=== PATIENT | male | born 1980 | race Caucasian/White ===

== ENCOUNTER 2016-04-12 17:54 | Emergency (ER) | payer OTHER ==
[~2016-04-12] VITALS: Wt 103.1 kg
[~2016-04-12 17:54] MED LIST: IBUP-1542 PO
--- NOTE | 2016-04-12 18:17 | ERA ---
ER Documentation Chief Complaint Date/Time DATE: 04/12/16 TIME: 18:17 Chief Complaint COUGH FEVER AND SORE THROAT FOR THE PAST 3 DAYS. NO STRIDOR OR SOB HPI The patient is a 35-year-old male, presenting to the ER because of cough, fever , sore throat, general body pain for 3 days. He denies facial pain, neck pain, chest pain, dyspnea, abdominal pain, dysuria, diarrhea. He smokes a pack a day , drinks socially Past medical history: None Past surgical history: Umbilical herniorrhaphy ROS All systems reviewed and are negative except as per history of present illness. Medications Home Meds Active Scripts Amoxicillin/Potassium Clav (Amox-Clav 875-125 mg Tablet) 875-125 mg Tab, 1 TAB PO BID for 10 Days, #20 TAB Prov:FRANCISCO JAVIER SWEENEY MD 04/12/16 Amoxicillin/Potassium Clav (Amox-Clav 875-125 mg Tablet) 875-125 mg Tab, 1 TAB PO BID for 10 Days, #20 TAB Prov:FRANCISCO JAVIER SWEENEY MD 04/12/16 Ibuprofen* (Motrin*) 800 Mg Tab, 800 MG PO Q6H Y for PAIN AND OR ELEVATED TEMP, #30 TAB Prov:FRANCISCO JAVIER SWEENEY MD 04/12/16 Promethazine HCl/Codeine (Prometh-Codein 6.25-10 mg/5 ml) 5 Ml Syrup, 10 ML PO Q6 for COUGH, #120 ML Prov:FRANCISCO JAVIER SWEENEY MD 04/12/16 Oseltamivir Phosphate* (Tamiflu*) 75 Mg Capsule, 75 MG PO BID for 5 Days, CAP Prov:FRANCISCO JAVIER SWEENEY MD 04/12/16 Amoxicillin/Potassium Clav (Amox-Clav 875-125 mg Tablet) 875-125 mg Tab, 1 TAB PO BID for 10 Days, #20 TAB Prov:FRANCISCO JAVIER SWEENEY MD 04/12/16 Ibuprofen* (Motrin*) 600 Mg Tab, 600 MG PO Q6H Y for PAIN AND OR ELEVATED TEMP, #30 TAB Prov:LAVERNE JASON NP 12/29/15 Allergies Allergies: Coded Allergies: No Known Allergy (Unverified , 02/02/13) PMhx/Soc Hx Cardiac Disorders: Yes (htn) Hx Alcohol Use: Yes Hx Substance Use: No Hx Tobacco Use: Yes Physical Exam Vitals Vital Signs Date Time Temp Pulse Resp B/P Pulse Ox O2 Delivery O2 Flow Rate FiO2 04/12/16 19:25 100.8 101 19 136/87 97 Room Air 04/12/16 17:57 101.0 115 22 140/78 98 Physical Exam Const: No acute distress. Head: Atraumatic. Eyes: Normal Conjunctiva. ENT: Normal External Ears, Nose and Mouth. Bilateral tympanic membrane within normal limits, oropharynx is erythematous with exudate Neck: Full range of motion. No meningismus. Resp: Clear to auscultation bilaterally. Cardio: Regular rate and rhythm, no murmurs. Abd: Soft, non distended, normal bowel sounds, non tender. Skin: No petechiae or rashes. Back: No midline or flank tenderness. Ext: No cyanosis, or edema. Neur: Awake and alert. No focal deficit Psych: Normal Mood and Affect. Results 24 hrs Current Medications Medications (Trade) Dose Ordered Sig/Sea Route PRN Reason Start Time Stop Time Status Last Admin Dose Admin Ibuprofen (Motrin) 800 mg ONCE ONCE PO 04/12/16 18:30 04/12/16 18:31 DC Acetaminophen (Tylenol Tab) 1,000 mg ONCE STAT PO 04/12/16 18:22 04/12/16 18:23 DC Procedures/[place] [id number] Radiology Main Line: [phone] DIAGNOSTIC IMAGING REPORT Patient: JARVIS BURR : 1980 Age: 35 Sex: M MR #: [id number] DOS: 04/12/16 1822 Ordering MD: FRANCISCOJ AVIER SWEENEY MD Location: E/R Room/Bed: PROCEDURE: Chest x-ray CLINICAL INDICATION: Shortness of breath TECHNIQUE: Chest single view COMPARISON: 02/02/2013 FINDINGS: The heart is normal in size. The pulmonary vessels are normal in caliber. There is stable left lower lung scarring. Lungs otherwise clear.. The costophrenic angles are sharp. The visualized bony thorax is unremarkable. IMPRESSION: No acute cardiopulmonary disease. No interval change RPTAT: .Blake Crowell MD, MD Date Time Electronically viewed and signed by .Blake Crowell MD, on 04/12/2016 18:44 .W/ CC: FRANCISCO JAVIER SWEENEY MD MEDICAL MAKING DECISION: The patient is a 35-year-old male, presenting with acute pharyngitis, influenza-like illness. He was treated with acetaminophen and Motrin for fever with good response. The differential diagnoses considered include but are not limited to asthma, COPD, pneumonia, pulmonary embolus, pleural effusion, congestive heart failure. Departure Diagnosis: Primary Impression: Acute pharyngitis Additional Impression: Influenza-like illness Condition: Good Comments He was discharged with Phenergan with codeine, Augmentin, Tamiflu, Motrin I discussed the findings with the patient. I advised the patient to follow-up with the primary physician in about 1-2 days, sooner if needed and return if any concern. The patient's blood pressure was elevated (>120/80) but appears stable without evidence of hypertension emergency or urgency. The patient was counseled about the risks of hypertension and urged to pursue outpatient monitoring and therapy within a week with their primary care physician. FRANCISCO JAVIER SWEENEY MD Apr 12, 2016 18:17
[2016-04-12] MEDS ORDERED: ACETAMINOPHEN 500 MG TAB PO STA (18:22)
[2016-04-12] MEDS ORDERED: IBUPROFEN 800 MG TAB PO ONE (18:30)
--- NOTE | 2016-04-12 18:45 | RADRPT ---
PROCEDURE: Chest x-ray CLINICAL INDICATION: Shortness of breath TECHNIQUE: Chest single view COMPARISON: 02/02/2013 FINDINGS: The heart is normal in size. The pulmonary vessels are normal in caliber. There is stable left low er lung scarring. Lungs otherwise clear.. The costophrenic angles are sharp. The visualized bony thorax is unremarkable. IMPRESSION: No acute cardiopulmonary disease. No interval change RPTAT: HH .Blake Crowell MD, MD Date Time Electronically viewed and signed by .Blake Crowell MD, on 04/12/2016 18:44 .W/
[2016-04-12] MEDS ORDERED: AMOX1TAB10 PO ×3 (18:55→19:17)
[2016-04-12] MEDS ORDERED: OSLT75C PO (18:55)
[2016-04-12] MEDS ORDERED: PROM5SYR2 PO (18:58)
[2016-04-12] MEDS ORDERED: IBUP800T25 PO (18:58)
[2016-04-12 19:25] VITALS: BP 136/87; PULSE 101; RESP 19; TEMP 100.8
== END 2016-04-12 19:28 | disposition home or self-care (01) ==
LOC: E/R 17:54
DX: J02.9 Acute pharyngitis, unspecified (principal); R50.9 Fever, unspecified; F17.210 Nicotine dependence, cigarettes, uncomplicated; I10 Essential (primary) hypertension
CPT/HCPCS: 71010; Z7502; Z7610

== ENCOUNTER 2018-02-26 17:09 | Emergency (ER) | payer OTHER ==
[~2018-02-26] VITALS: Ht 175.3 cm; Wt 101.7 kg
[~2018-02-26 17:09] MED LIST changes: +AMOX1TAB10 PO; +IBUP800T48 PO; +OSLT75C PO; +PROM5SYR2 PO
[2018-02-26 17:13] VITALS: Ht 175.3 cm; Wt 101.7 kg
[2018-02-26] MEDS ORDERED: CEFTRIAXONE 1 GM/50 ML (PMX) 50 ML IVPB ONE (18:30)
[2018-02-26] MEDS ORDERED: SOD CHLORIDE 0.9% 1,000 ML IV ONE (18:30)
[2018-02-26] MEDS ORDERED: ONDANSETRON 4 MG INJ IV STA (18:50)
[2018-02-26] MEDS ORDERED: morphine 4 MG/ML VIAL IV STA (18:50)
[2018-02-26] MEDS ORDERED: CLINDAMYCIN 900 MG/D5W (PMX) 50 ML IVPB SCH (19:00)
[2018-02-26] MEDS ORDERED: LIDOCAINE 1% (MDV) 20 ML INJ SC ONE (19:00)
[2018-02-26] MEDS ORDERED: BENZOCAINE 20% 56 ML SPRAY TOP PRN (19:00)
[2018-02-26] MEDS ORDERED: DEXAMETHASONE 10 MG/ML 1 ML INJ IV ONE (19:00)
[2018-02-26] MEDS ORDERED: AMOX1TAB10 PO ×2 (20:31→20:32)
[2018-02-26] MEDS ORDERED: MED4DP PO (20:33)
[2018-02-26] MEDS ORDERED: IBUP-1542 PO (20:33)
[2018-02-26 20:35] VITALS: BP 127/72; PULSE 101; RESP 18
--- NOTE | 2018-02-26 21:17 | ERD ---
ER Documentation Chief Complaint Chief Complaint Complains of a sore throat x 2 days HPI 37-year-old male presents for sore throat times 2 days. He states that he has 10 out of 10 pain. Denies any fevers. He states he also has bilateral ear pain. He is having difficulty swallowing. Denies cough or runny nose. No prior similar symptoms. Denies chest pain or shortness of breath. Denies abdominal pain, nausea, vomiting. ROS All systems reviewed and are negative except as per history of present illness. Medications Home Meds Active Scripts Ibuprofen* (Motrin*) 600 Mg Tab, 600 MG PO Q6H PRN for PAIN AND OR ELEVATED TEMP, #30 TAB Prov:FRANCISCO JAVIER GURROLA DO 02/26/18 Methylprednisolone* (Medrol* DOSE PACK) 4 Mg/Dose-Pack Tab.ds.pk, 4 MG PO . DIRECTED for peritonsillar abscess, #1 PACKET Prov:FRANCISCO JAVIER GURROLA DO 02/26/18 Amoxicillin/Potassium Clav (Amox-Clav 875-125 mg Tablet) 875-125 mg Tab, 1 TAB PO BID for 14 Days, #20 TAB Prov:FRANCISCO JAVIER GURROLA DO 02/26/18 Amoxicillin/Potassium Clav (Amox-Clav 875-125 mg Tablet) 875-125 mg Tab, 1 TAB PO BID for 10 Days, #20 TAB Prov:FRANCISCO JAVIER SWEENEY MD 04/12/16 Amoxicillin/Potassium Clav (Amox-Clav 875-125 mg Tablet) 875-125 mg Tab, 1 TAB PO BID for 10 Days, #20 TAB Prov:FRANCISCO JAVIER SWEENEY MD 04/12/16 Ibuprofen* (Motrin*) 800 Mg Tab, 800 MG PO Q6H PRN for PAIN AND OR ELEVATED TEMP, #30 TAB Prov:FRANCISCO JAVIER SWEENEY MD 04/12/16 Promethazine HCl/Codeine (Prometh-Codein 6.25-10 mg/5 ml) 5 Ml Syrup, 10 ML PO Q6 for COUGH, #120 ML Prov:FRANCISCO JAVIER SWEENEY MD 04/12/16 Oseltamivir Phosphate* (Tamiflu*) 75 Mg Capsule, 75 MG PO BID for 5 Days, CAP Prov:FRANCISCO JAVIER SWEENEY MD 04/12/16 Amoxicillin/Potassium Clav (Amox-Clav 875-125 mg Tablet) 875-125 mg Tab, 1 TAB PO BID for 10 Days, #20 TAB Prov:FRANCISCO JAVIER SWEENEY MD 04/12/16 Ibuprofen* (Motrin*) 600 Mg Tab, 600 MG PO Q6H PRN for PAIN AND OR ELEVATED TEMP, #30 TAB Prov:LAVERNE JASON NP 12/29/15 Allergies Allergies: Coded Allergies: No Known Allergy (Unverified , 02/02/13) PMhx/Soc Hx Cardiac Disorders: Yes (htn) Hx Alcohol Use: Yes Hx Substance Use: No Hx Tobacco Use: Yes Smoking Status: Unknown if ever smoked Physical Exam Vitals Vital Signs Date Temp Pulse Resp B/P (MAP) Pulse Ox O2 O2 Flow FiO2 Time Delivery Rate 02/26/18 99.1 101 18 127/72 92 Room Air 20:35 (90) 02/26/18 98.5 111 20 133/83 96 17:13 (100) Physical Exam Const: No acute distress, patient did have mildly muffled voice Head: Atraumatic Eyes: Normal Conjunctiva ENT: Normal External Ears, bilateral tympanic memory intact without erythema or bulging noted, Nose. Oral examination shows left peritonsillar swelling with some erythema and underlying fluctuance on palpation. Airway is patent. Neck: Full range of motion. No meningismus. Resp: Clear to auscultation bilaterally, no wheezing, patient speaking in full sentences, no use of accessory muscles Cardio: Regular rate and rhythm, no murmurs Skin: No petechiae or rashes Ext: No cyanosis, or edema Neur: Awake and alert Psych: Normal Mood and Affect Result Diagram: 02/26/18 1845 02/26/18 1845 Results 24 hrs Laboratory Tests Test 02/26/18 18:45 White Blood Count 16.1 10^3/ul Red Blood Count 4.99 10^6/ul Hemoglobin 15.0 g/dl Hematocrit 44.3 % Mean Corpuscular Volume 88.8 fl Mean Corpuscular Hemoglobin 30.1 pg Mean Corpuscular Hemoglobin Concent 33.9 g/dl Red Cell Distribution Width 13.3 % Platelet Count 199 10^3/UL Mean Platelet Volume 8.5 fl Immature Granulocytes % 0.600 % Neutrophils % 76.0 % Lymphocytes % 16.6 % Monocytes % 5.8 % Eosinophils % 0.6 % Basophils % 0.4 % Nucleated Red Blood Cells % 0.0 /100WBC Immature Granulocytes # 0.090 10^3/ul Neutrophils # 12.3 10^3/ul Lymphocytes # 2.7 10^3/ul Monocytes # 0.9 10^3/ul Eosinophils # 0.1 10^3/ul Basophils # 0.1 10^3/ul Nucleated Red Blood Cells # 0.0 10^3/ul Sodium Level 140 mmol/L Potassium Level 4.0 mmol/L Chloride Level 101 mmol/L Carbon Dioxide Level 26 mmol/L Anion Gap 13 Blood Urea Nitrogen 13 mg/dl Creatinine 0.55 mg/dl Est Glomerular Filtrat Rate mL/min > 60 mL/min Glucose Level 129 mg/dl Calcium Level 10.0 mg/dl Total Bilirubin 0.3 mg/dl Direct Bilirubin 0.00 mg/dl Indirect Bilirubin 0.3 mg/dl Aspartate Amino Transf (AST/SGOT) 22 IU/L Alanine Aminotransferase (ALT/SGPT) 16 IU/L Alkaline Phosphatase 90 IU/L Total Protein 8.8 g/dl Albumin 4.8 g/dl Globulin 4.00 g/dl Albumin/Globulin Ratio 1.20 Current Medications Medications Dose Sig/Sea Start Time Status Last (Trade) Ordered Route PRN Stop Time Admin Dose Reason Admin Sodium 1,000 ml @ Q1H ONCE 02/26/18 DC 02/26/18 Chloride 1,000 mls/hr IV 18:30 02/26/18 19:06 19:29 Ceftriaxone 50 ml @ ONCE ONCE 02/26/18 DC Sodium 100 mls/hr IVPB 18:30 02/26/18 18:51 Clindamycin 50 ml @ 50 ONCE IVPB 02/26/18 DC 02/26/18 HCl/ mls/hr 19:00 02/26/18 19:06 Dextrose 19:59 10 mg ONCE ONCE 02/26/18 DC 02/26/18 Dexamethasone IV 19:00 02/26/18 19:05 (Decadron) 19:01 Lidocaine 20 ml ONCE ONCE 02/26/18 DC (Xylocaine SC 19:00 02/26/18 1% (Mdv) 20 19:01 ml) Benzocaine 1 spray PRN PRN 02/26/18 DC (Dermoplast TOP PAIN 19:00 02/26/18 [place]) 21:03 Morphine 4 mg ONCE STAT 02/26/18 DC 02/26/18 Sulfate IV 18:50 02/26/18 19:06 (morphine) 18:55 Ondansetron 4 mg ONCE STAT 02/26/18 DC 02/26/18 HCl (Zofran IV 18:50 02/26/18 19:05 Inj) 18:55 Procedures/MDM Medical Decision Making: Differential diagnosis includes but not limited to strep throat, peritonsillar abscess, tonsillitis. Patient appeared well on examination. There was severe left peritonsillar swelling with underlying fluctuance to palpation consistent with a peritonsillar abscess. CBC showed an elevated WBC of 16, no anemia noted. CMP showed normal electrolytes, normal renal and liver function. Patient given IV fluids, IV pain medication, Zofran, Decadron, IV antibiotics clindamycin. On-call ENT Dr. Terrazas was consulted and performed a bedside incision and drainage. Elevated WBC is a reflection of the patient's peritonsillar abscess. Patient appeared well and it was felt that he was stable for outpatient management. Patient given prescription for Medrol Dosepak, Augmentin for 14 days, pain medication. Patient advised to follow-up with ENT outpatient if swelling does not improve. Patient advised to follow up with PCP in 1-2 days. Patient advised to return to ED for new or worsening symptoms. Patient stable on discharge from the ED. Disclaimer: Inadvertent spelling and grammatical errors are likely due to EHR/dictation software use and do not reflect on the overall quality of patient care. Also, please note that the electronic time recorded on this note does not necessarily reflect the actual time of the patient encounter. Departure Diagnosis: Primary Impression: Peritonsillar abscess Condition: Fair Patient Instructions: Peritonsillar Abscess Referrals: [facility] YOU HAVE RECEIVED A MEDICAL SCREENING EXAM AND THE RESULTS INDICATE THAT YOU DO NOT HAVE A CONDITION THAT REQUIRES URGENT TREATMENT IN THE EMERGENCY DEPARTMENT. FURTHER EVALUATION AND TREATMENT OF YOUR CONDITION CAN WAIT UNTIL YOU ARE SEEN IN YOUR DOCTORS OFFICE WITHIN THE NEXT 1-2 DAYS. IT IS YOUR RESPONSIBILITY TO MAKE AN APPOINTMENT FOR FOLOW-UP CARE. IF YOU HAVE A PRIMARY DOCTOR --you should call your primary doctor and schedule an appointment IF YOU DO NOT HAVE A PRIMARY DOCTOR YOU CAN CALL OUR PHYSICIAN REFERRAL HOTLINE AT IF YOU CAN NOT AFFORD TO SEE A PHYSICIAN YOU CAN CHOSE FROM THE FOLLOWING [facility] [id number] [facility] [address] [facility] [facility] [address] [facility] [facility] [address] [facility]. [facility] [address] [facility]. [facility] [address] Additional Instructions: Call your primary care doctor TOMORROW for an appointment during the next 1-2 days.See the doctor sooner or return here if your condition worsens before your appointment time. Follow up with ENT outpatient. FRANCISCO JAVIER GURROLA DO Feb 26, 2018 21:17
--- NOTE | 2018-02-27 00:05 | CONS ---
DATE OF ADMISSION: 02/26/2018 DATE OF CONSULTATION: 02/26/2018 REASON FOR CONSULTATION: Left peritonsillar abscess. CHIEF COMPLAINT: Throat pain. HISTORY OF PRESENT ILLNESS: This is a 37-year-old gentleman with history of hypertension who developed sudden onset of sore throat yesterday. Sore throat has progressively worsened and includes left neck pain, left otalgia, dysphagia, odynophagia, and slightly muffled voice. The patient has been unable to take p.o. over the past day. The patient does have a prior episode of acute pharyngitis requiring antibiotics but has not had a peritonsillar abscess in the past. Due to the size of the infection, ENT consultation was requested by the emergency room physician. PAST MEDICAL HISTORY: Hypertension. PAST SURGICAL HISTORY: None. FAMILY HISTORY: No history of head and neck carcinoma. SOCIAL HISTORY: Smoking, yes. Alcohol, yes. ALLERGIES: NO KNOWN ALLERGIES. MEDICATIONS: None. REVIEW OF SYSTEMS: A 10-point review of systems was negative except as noted in the HPI. PHYSICAL EXAMINATION: The patient underwent a physical examination as described below. The pertinent positive and negative findings are summarized after the description of the examination. Constitutional: The patient's developmental and nutritional status were assessed. The patient's voice quality was assessed. Head and Face: The head and face were inspected for deformities. The salivary glands were palpated. Facial strength was assessed bilaterally. Eyes: Extraocular movements and primary gaze alignment were assessed. Ears, Nose, Mouth & Throat: The external auditory canals and pinnae were examined. The nasal septum, mucosa, and turbinates were inspected by anterior rhinoscopy. The lips, teeth, and gums were examined for abnormalities. The oral mucosa, tongue, palate, tonsils, lateral and posterior pharynx were inspected for the presence of asymmetry or mucosal lesions. Neck: The tracheal position was noted, and the neck was palpated to determine if there were any asymmetries, abnormal neck masses, or thyromegaly. Respiratory: The nature of the breathing and chest expansion/symmetry was observed. Cardiovascular: The patient was examined to determine the presence of any edema or jugular venous distension. Abdomen: The contour of the abdomen was noted. Lymphatic: The patient was examined for supraclavicular lymphadenopathy. Musculoskeletal: The patient was inspected for the presence of skeletal deformities. Extremities: The extremities were examined for any clubbing or cyanosis. Skin: The skin was examined for inflammatory or neoplastic conditions. Neurologic: The patient's orientation, mood, and affect were noted. The cranial nerve functions were examined (II-VII, IX-XII) Pertinent positive and negative findings on physical examination: EARS: AU pinnae within normal limits. No otorrhea. External auditory canals clear, tympanic membranes intact. NOSE: Grossly normal external appearance. Normal mucosa, no epistaxis or rhinorrhea. ORAL CAVITY AND OROPHARYNX: There is very slight trismus. Dentition is fair. There is moderate amount of thick dry secretions. There is significant left palate bulge with severe uvular edema. The tonsillar fossae are poorly visualized secondary to the uvular edema. NECK: Tender on the left more than the right. The trachea is midline and the neck is supple. PROCEDURE: I had a thorough discussion with the patient regarding the risks, benefits, rationale, and alternatives to incision and drainage of the peritonsillar abscess. The patient understood the risks included but were not limited to failure to alleviate symptoms, infection, bleeding, scar, numbness, dysphagia, dyspnea, need for further treatment. The patient did elect to proceed. PROCEDURAL DETAILS: The patient was carefully positioned in an upright seated position. Oral cavity was suctioned free of secretions. 1% lidocaine was injected in a submucosal manner into the area of the planned incision. An 11 blade scalpel was used to make the 1 cm incision in the left soft palate overlying the most prominent aspect of the bulge. Curved dissectors were utilized to enter into the abscess pocket and a small amount of purulent material was drained. There was a small degree of bloody secretions that emanated from this area as well. Culture swab was taken of the area. The patient felt improvement in symptoms at this time. With this, the procedure was concluded. ESTIMATED BLOOD LOSS: Minimal. COMPLICATIONS: None. ASSESSMENT AND PLAN: This is a 37-year-old gentleman who is presenting with a left peritonsillar abscess and significant uvular edema. He has been improving after receiving clindamycin, Decadron, morphine, Zofran and ceftriaxone in the ER and he is now status post incision and drainage of left peritonsillar abscess. Due to the significant edema, I have recommended that he be discharged with a Medrol Dosepak as well as appropriate antibiotics. I did provide the patient and family with my contact information so they can follow up with me in the office. Return precautions were thoroughly discussed with specific attention to lethargy, bleeding, and inability to take p.o. and worsening of symptoms and the patient and his family understand and will follow up accordingly. Dictated By: EMILY CARLOS/LADY Conf#: [id number] DID#: [id number]
== END 2018-02-26 20:50 | disposition home or self-care (01) ==
LOC: FTE 17:09
DX: J36 Peritonsillar abscess (principal); I10 Essential (primary) hypertension
CPT/HCPCS: 42700; 80053; 85025; 87880; 96365; 96375; J1100; J2270; J2405; J7030; Z7502; Z7610